=== PATIENT | female | born 1970 | race Caucasian/White ===

== ENCOUNTER 2016-09-07 13:26 | Emergency (ER) | payer BC ==
--- NOTE | 2016-09-07 15:05 | RAD ---
INDICATION: Right ankle injury. TECHNIQUE: 3 views of the right ankle were obtained. FINDINGS: Soft tissue swelling is noted along the anterolateral aspect of the ankle. There is a small avulsion fracture fragment arising from the distal tip of the fibula. No other fractures are seen. Joint spaces appear maintained. IMPRESSION: SOFT TISSUE SWELLING AND SMALL AVULSION FRACTURE FRAGMENT ARISING FROM THE DISTAL TIP OF THE FIBULA.
[2016-09-07 15:25] VITALS: BP 142/84
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
== END 2016-09-07 15:24 | disposition home or self-care (01) ==
LOC: ED 13:26
DX: S82.891A Other fracture of right lower leg, initial encounter for closed fracture (principal); W22.8XXA Striking against or struck by other objects, initial encounter; Y93.89 Activity, other specified; Y92.9 Unspecified place or not applicable; Z72.0 Tobacco use
CPT/HCPCS: 99282

== ENCOUNTER 2019-08-07 13:50 | Inpatient (IN) ==
[2019-08-07 16:38] LABS: ABS Basophils 0.1 10^3/ul (0-0.2); ABS Eosinophils 0.2 10^3/ul (0-0.6); ABS Lymphocytes 2.1 10^3/ul (1.0-4.8); ABS Monocytes 0.7 10^3/ul (0-0.8); Eosinophil % 2.3 %; Hematocrit 37 % (35-47); Hemoglobin 12.8 g/dL (12.0-16.0); Lymphocyte % 25.8 %; Mean Corpuscular HGB Conc 35 g/dL (31-36); Mean Corpuscular Hemoglobin 33 pg (27-31); Mean Corpuscular Volume 94 fL (80-97); Mean Platelet Volume 7.8 fL (7.4-10.4); Platelet Count 271 10^3/uL (150-450); Red Blood Count 3.91 10^6 /uL (3.70-4.87); Red Cell Distribution Width 13 % (10-15)
[2019-08-07 16:54] LABS: Albumin 4.3 g/dL (3.2-5.2); Anion Gap 4 mmol/L (2-11); BUN/Creatinine Ratio 21.9 (8-20); Blood Urea Nitrogen 14 mg/dL (6-24); CO2 Carbon Dioxide 27 mmol/L (22-32); Calcium 9.3 mg/dL (8.6-10.3); Chloride 106 mmol/L (101-111); EGFR African American 119.3 (>60); EGFR Non-African American 98.6 (>60); Glucose 85 mg/dL (70-100); Potassium 4.2 mmol/L (3.5-5.0); Sodium 137 mmol/L (135-145)
[2019-08-07 16:55] LABS: ALT 9 U/L (7-52); AST 16 U/L (13-39); Albumin/Globulin Ratio 1.6 (1-3); Alkaline Phosphatase 61 U/L (34-104); Globulin 2.7 g/dL (2-4)
[2019-08-07] MEDS ORDERED: Metoprolol Tartrate 5 mg VIAL 5 ml VIAL (1 mg/ml) IV ONE (18:18)
[2019-08-07] MEDS ORDERED: Ondansetron 4 mg VIAL 2 MG/ML 2 ml VIAL IV PRN (18:18)
[2019-08-07] MEDS: Heparin 5000 UNITS/ML VIAL(*) 1 ml vial IV SCH (19:52)
[2019-08-07] MEDS: Heparin DRIP 25,000 UNITS(*) 25,000 UNITS/500 ML BAG IV SCH (19:54)
[2019-08-07 20:35] LABS: Troponin I 0.15 ng/mL (<0.03)
[2019-08-07 23:19] LABS: Troponin I 0.14 ng/mL (<0.03)
[2019-08-08 05:57] LABS: ABS Basophils 0.1 10^3/ul (0-0.2); ABS Eosinophils 0.3 10^3/ul (0-0.6); ABS Lymphocytes 2.5 10^3/ul (1.0-4.8); ABS Monocytes 0.8 10^3/ul (0-0.8); Eosinophil % 3.9 %; Hematocrit 34 % (35-47); Hemoglobin 11.7 g/dL (12.0-16.0); Lymphocyte % 32.8 %; Mean Corpuscular HGB Conc 35 g/dL (31-36); Mean Corpuscular Hemoglobin 33 pg (27-31); Mean Corpuscular Volume 94 fL (80-97); Mean Platelet Volume 8.5 fL (7.4-10.4); Nucleated Red Blood Cells % 0.1; Platelet Count 243 10^3/uL (150-450); Red Blood Count 3.57 10^6 /uL (3.70-4.87); Red Cell Distribution Width 14 % (10-15); White Blood Count 7.7 10^3/uL (3.5-10.8)
[2019-08-08 06:18] LABS: BUN/Creatinine Ratio 30.5 (8-20); Calcium 8.6 mg/dL (8.6-10.3); EGFR African American 131.1 (>60); EGFR Non-African American 108.3 (>60); HDL Cholesterol 70.5 mg/dL; Potassium 3.9 mmol/L (3.5-5.0)
[2019-08-08] MEDS: Heparin 5000 UNITS/ML VIAL(*) 1 ml vial IV SCH ×2 (08:44→23:49)
[2019-08-08] MEDS: Nicotine PATCH 7 MG/24 HR PATCH TRANSDERM SCH (10:50)
[2019-08-08] MEDS: Heparin DRIP 25,000 UNITS(*) 25,000 UNITS/500 ML BAG IV SCH (23:49)
[2019-08-09] MEDS: NS 0.9% 1000 ml BAG 1,000 ML IV SCH ×2 (00:09→10:12)
[2019-08-09 06:08] LABS: ABS Basophils 0.1 10^3/ul (0-0.2); ABS Eosinophils 0.3 10^3/ul (0-0.6); ABS Lymphocytes 2.4 10^3/ul (1.0-4.8); ABS Monocytes 0.6 10^3/ul (0-0.8); Eosinophil % 4.3 %; Hematocrit 32 % (35-47); Hemoglobin 11.1 g/dL (12.0-16.0); Lymphocyte % 35.1 %; Mean Corpuscular HGB Conc 34 g/dL (31-36); Mean Corpuscular Hemoglobin 33 pg (27-31); Mean Corpuscular Volume 95 fL (80-97); Mean Platelet Volume 8.3 fL (7.4-10.4); Nucleated Red Blood Cells % 0.1; Platelet Count 237 10^3/uL (150-450); Red Blood Count 3.38 10^6 /uL (3.70-4.87); Red Cell Distribution Width 13 % (10-15); White Blood Count 6.9 10^3/uL (3.5-10.8)
[2019-08-09 06:26] LABS: BUN/Creatinine Ratio 26.8 (8-20); Calcium 8.5 mg/dL (8.6-10.3); EGFR African American 139.2 (>60); EGFR Non-African American 115.1 (>60); Potassium 3.9 mmol/L (3.5-5.0)
[2019-08-09] MEDS ORDERED: Diazepam 5 mg TAB (*) PO PRN (08:00)
[2019-08-09] MEDS ORDERED: diPHENhydraMINE 25 mg TAB PO PRN (08:00)
[2019-08-09] MEDS: Nicotine PATCH 7 MG/24 HR PATCH TRANSDERM SCH (10:16)
[2019-08-09] MEDS ORDERED: fentaNYL 100 mcg/2 ml 50 MCG/ML VIAL ONE (11:54)
[2019-08-09] MEDS ORDERED: Midazolam 5 mg/5 ml VIAL 1 mg/ml 5 ml VIAL (5 mg) ONE (11:54)
[2019-08-09] MEDS ORDERED: VERAPAMIL 2.5 MG/ML 2 ML VIAL ** 5 mg/2 ml ONE (11:54)
[2019-08-09] MEDS ORDERED: Heparin 1,000 UNIT/ML CATH LAB 1,000 10 ml (10,000 UNITS) IV ONE (11:54)
[2019-08-09] MEDS ORDERED: Iohexol 350 (CONTRAST) 200 ML MDV IV ONE ×2 (11:55→12:30)
[2019-08-09] MEDS ORDERED: Lidocaine 1% VIAL 10 MG/ML VIAL ONE (11:55)
[2019-08-09] MEDS ORDERED: Heparin 2 UNITS/ML 1000 mls 2,000 ML IV ONE (11:55)
[2019-08-09] MEDS ORDERED: nitroGLYCERIN DRIP 25,000 MCG/250 ML BTL ONE (11:55)
[2019-08-09 16:50] VITALS: BP 115/52
== END 2019-08-09 17:00 | disposition home or self-care (01) | DRG 192 ==
LOC: ED 13:50 → MEDTELE 13:50 → OBSVTOIN 19:34 → MEDTELE 20:45
PROVIDERS: ADMIT Hospitalist; ATTEND Internal Medicine